=== PATIENT | male | born 1960 | race American Indian/Alaskan Native ===

== ENCOUNTER 2023-09-19 08:03 | Emergency (ER) | payer MEDICAID, OTHER ==
[2023-09-19 08:25] LABS: BASOPHILS PERCENT AUTO 0.2 % (0.0-1.0); EOSINOPHILS PERCENT AUTO 0.2 % (1.0-3.0); HEMATOCRIT 41.8 % (40.0-54.0); HEMOGLOBIN 13.4 g/dL (14.0-18.0); LYMPHOCYTES PERCENT AUTO 17.2 % (20.5-50.1); MEAN CORPUSCULAR HEMOGLOBIN 23.3 pg (27.0-34.0); MEAN CORPUSCULAR HGB CONC 32.1 g/dL (33.0-35.0); MEAN CORPUSCULAR VOLUME 72.8 fL (80-100); MONOCYTES PERCENT AUTO 6.4 % (2-8); PLATELET COUNT,PLT 275 10^3/uL (150-450); RED BLOOD CELL COUNT 5.74 10^6/uL (4.6-6.2); WHITE BLOOD CELL COUNT,WBC 13.5 10^3/uL (5.0-10.0)
[2023-09-19] MEDS: Sodium Chloride 0.9% 1,000 ML IV SCH (08:27)
[2023-09-19] MEDS: Sodium Chloride 0.9% 10 ML Syringe FLUSH PRN (08:27)
[2023-09-19] MEDS: Ondansetron 8 MG in Sodium Chloride 0.9% 50 ML IV ONE (08:30)
[2023-09-19 08:48] LABS: ALANINE AMINOTRANSFERASE,ALT 44 U/L (16-63); ALBUMIN 3.9 g/dL (3.4-5.0); ALKALINE PHOSPHATASE 119 U/L (46-116); ANION GAP 13.9 mEq/L (7-13); ASPARTATE AMNIOTRANSFERASE,AST 20 U/L (15-37); BILIRUBIN TOTAL 0.8 mg/dL (0.2-1.0); BLOOD UREA NITROGEN,BUN 27 mg/dL (7-18); BUN/CREATININE RATIO 31.4 (No establ ref range); CALCIUM 9.1 mg/dL (8.5-10.1); CARBON DIOXIDE,CO2 24 mmol/L (21-32); CHLORIDE,CL 104 mmol/L (98-107); CREATININE 0.86 mg/dL (0.70-1.30); EST CRCL DRUG DOSING (CG) 97.75 mL/min; GLUCOSE RANDOM 128 mg/dL (70-99); LIPASE 29 U/L (16-77); MAGNESIUM 1.9 mg/dL (1.8-2.4); POTASSIUM,K 3.9 mmol/L (3.5-5.1); PROTEIN TOTAL,TP 7.9 g/dL (6.4-8.2); SODIUM,NA 138 mmol/L (136-145)
[2023-09-19 08:51] LABS: PROTHROMBIN TIME 10.3 SEC (9.0-12.0)
[2023-09-19 08:57] LABS: ESTIMATED GFR 98 mL/min (>=60)
[2023-09-19 09:03] LABS: B-TYPE NATRIURETIC PEPTIDE,BNP < 5 pg/ml (0-100)
[2023-09-19 09:07] LABS: PTT,PARTIAL THROMBOPLSTIN TIME 25.2 SEC (22.0-34.0)
[2023-09-19] MEDS: Iopamidol 612 MG/ML 100 ML Bottle IVPUSH ONE (09:12)
[2023-09-19 09:26] LABS: APPEARANCE,URINE CLEAR (CLEAR); BILIRUBIN,URINE NEGATIVE (NEGATIVE); COLOR,URINE YELLOW (YELLOW); GLUCOSE,URINE NEGATIVE (NEGATIVE); KETONES,URINE NEGATIVE (NEGATIVE); LEUKOCYTE ESTERASE,URINE NEGATIVE (NEGATIVE); NITRITE,URINE NEGATIVE (NEGATIVE); OCCULT BLOOD,URINE NEGATIVE (NEGATIVE); PH,URINE 6.5 (5.0-9.0); PROTEIN,URINE NEGATIVE (NEGATIVE)
[2023-09-19] MEDS ORDERED: Naloxone 2 MG/2 ML Syringe IVPUSH PRN ×2 (09:33→11:07)
[2023-09-19 09:46] LABS: BENZODIAZEPINE,URINE NEGATIVE (NEGATIVE); MDMA (ECSTASY), URINE NEGATIVE (NEGATIVE); METHADONE,URINE NEGATIVE (NEGATIVE); METHAMPHETAMINES,URINE NEGATIVE (NEGATIVE); OPIATES,URINE NEGATIVE (NEGATIVE)
[2023-09-19 09:47] LABS: AMPHETAMINES,URINE NEGATIVE (NEGATIVE); BARBITURATES,URINE NEGATIVE (NEGATIVE); OXYCODONE,URINE NEGATIVE (NEGATIVE); PHENCYCLIDINE,URINE NEGATIVE (NEGATIVE); TCA,URINE NEGATIVE (NEGATIVE)
[2023-09-19] MEDS: Morphine 2 MG/ML SYRINGE IVPUSH ONE ×2 (09:48→11:20)
[2023-09-19] MEDS: Sodium Chloride 0.9% 1,000 ML IV ONE (11:20)
[2023-09-19] MEDS: Piperacillin/Tazobactam 3.375 GM in Sodium Chloride 0.9% 100 ML IV ONE (11:25)
[2023-09-19] MEDS: hydrALAZINE 20 MG/ML SDV IVPUSH ONE ×2 (11:27→11:52)
[2023-09-19] MEDS: Metoclopramide 10 MG/2 ML SDV IVPUSH ONE (11:37)
[2023-09-19 11:43] VITALS: BP 133/70; PULSE 117
== END 2023-09-19 11:59 ==
LOC: DL.ED 08:03
DX: K37 Unspecified appendicitis (principal); I10 Essential (primary) hypertension; K21.9 Gastro-esophageal reflux disease without esophagitis; Z88.6 Allergy status to analgesic agent; Z88.5 Allergy status to narcotic agent; Z88.8 Allergy status to other drugs, medicaments and biological substances; Z79.899 Other long term (current) drug therapy; Z87.891 Personal history of nicotine dependence
CPT/HCPCS: 36415; 71045; 74177; 80053; 80305; 81003; 83605; 83690; 83735; 83880; 84484; 85025; 85610; 85730; 87040; 93005; 96361; 96374; 96375; 96376; 99285; J0360; J2270; J2405; J2543; J2765; J3490; J7030; Q9967

== ENCOUNTER 2024-04-24 12:05 | Emergency (ER) | payer MEDICAID ==
[2024-04-24 12:50] LABS: BASOPHILS PERCENT AUTO 0.3 % (0.0-1.0); EOSINOPHILS PERCENT AUTO 1.9 % (1.0-3.0); HEMATOCRIT 45.1 % (40.0-54.0); HEMOGLOBIN 14.7 g/dL (14.0-18.0); LYMPHOCYTES PERCENT AUTO 39.9 % (20.5-50.1); MEAN CORPUSCULAR HGB CONC 32.6 g/dL (33.0-35.0); MEAN CORPUSCULAR VOLUME 79.7 fL (80-100); MONOCYTES PERCENT AUTO 8.7 % (2-8); NEUTROPHILS PERCENT AUTO 49.2 % (42.2-75.2); PLATELET COUNT,PLT 240 10^3/uL (150-450); RED BLOOD CELL COUNT 5.66 10^6/uL (4.6-6.2); WHITE BLOOD CELL COUNT,WBC 6.8 10^3/uL (5.0-10.0)
[2024-04-24 13:12] LABS: A/G RATIO 0.9; ALBUMIN 3.9 g/dL (3.4-5.0); ANION GAP 15.1 mEq/L (7-13); BILIRUBIN TOTAL 0.7 mg/dL (0.2-1.0); BUN/CREATININE RATIO 22.4 (No establ ref range); CALCIUM 8.9 mg/dL (8.5-10.1); CREATININE 0.85 mg/dL (0.70-1.30); EST CRCL DRUG DOSING (CG) 90.11 mL/min; POTASSIUM,K 4.1 mmol/L (3.5-5.1); PROTEIN TOTAL,TP 8.2 g/dL (6.4-8.2)
[2024-04-24 13:49] VITALS: BP 111/87; PULSE 58
== END 2024-04-24 15:23 | disposition home or self-care (01) ==
LOC: DL.ED 12:05
DX: R07.89 Other chest pain (principal); I10 Essential (primary) hypertension; K21.9 Gastro-esophageal reflux disease without esophagitis; Z88.6 Allergy status to analgesic agent; Z88.8 Allergy status to other drugs, medicaments and biological substances; Z79.899 Other long term (current) drug therapy
CPT/HCPCS: 36415; 71046; 80053; 82550; 83690; 83735; 84484; 85025; 85379; 93005; 99285

== ENCOUNTER 2024-06-08 05:09 | Emergency (ER) | payer MEDICAID ==
[2024-06-08 05:31] VITALS: BP 134/90; PULSE 72
[2024-06-08] MEDS ORDERED: Sodium Chloride 0.9% 10 ML Syringe FLUSH PRN (05:51)
[2024-06-08 06:07] LABS: BASOPHILS PERCENT AUTO 0.3 % (0.0-1.0); HEMATOCRIT 43.1 % (40.0-54.0); HEMOGLOBIN 13.8 g/dL (14.0-18.0); LYMPHOCYTES PERCENT AUTO 15.1 % (20.5-50.1); MEAN CORPUSCULAR VOLUME 81.3 fL (80-100); MONOCYTES PERCENT AUTO 9.8 % (2-8); NEUTROPHILS PERCENT AUTO 72.8 % (42.2-75.2); PLATELET COUNT,PLT 223 10^3/uL (150-450); WHITE BLOOD CELL COUNT,WBC 9.5 10^3/uL (5.0-10.0)
[2024-06-08 06:08] LABS: APPEARANCE,URINE CLEAR (CLEAR); BILIRUBIN,URINE NEGATIVE (NEGATIVE); COLOR,URINE YELLOW (YELLOW); GLUCOSE,URINE NEGATIVE (NEGATIVE); KETONES,URINE NEGATIVE (NEGATIVE); LEUKOCYTE ESTERASE,URINE NEGATIVE (NEGATIVE); NITRITE,URINE NEGATIVE (NEGATIVE); OCCULT BLOOD,URINE MODERATE (NEGATIVE); PROTEIN,URINE NEGATIVE (NEGATIVE)
[2024-06-08 06:22] LABS: WBC,URINE 0-5 /HPF (0-5/HPF)
[2024-06-08 06:23] LABS: BACTERIA,URINE RARE /HPF (0-FEW/HPF); EPITHELIAL CELLS,URINE RARE /HPF (NOT SEEN)
[2024-06-08 06:26] LABS: A/G RATIO 0.9; ALBUMIN 3.8 g/dL (3.4-5.0); ANION GAP 11.9 mEq/L (7-13); BILIRUBIN TOTAL 0.6 mg/dL (0.2-1.0); BUN/CREATININE RATIO 14.7 (No establ ref range); CALCIUM 9.2 mg/dL (8.5-10.1); CREATININE 1.16 mg/dL (0.70-1.30); EST CRCL DRUG DOSING (CG) 65.18 mL/min; POTASSIUM,K 3.9 mmol/L (3.5-5.1); PROTEIN TOTAL,TP 8.2 g/dL (6.4-8.2)
[2024-06-08 06:29] LABS: LACTIC ACID 0.8 mmol/L (0.4-2.0)
[2024-06-08 06:34] LABS: AMPHETAMINES,URINE POSITIVE (NEGATIVE); BARBITURATES,URINE NEGATIVE (NEGATIVE); BENZODIAZEPINE,URINE NEGATIVE (NEGATIVE); MDMA (ECSTASY), URINE NEGATIVE (NEGATIVE); METHADONE,URINE NEGATIVE (NEGATIVE); METHAMPHETAMINES,URINE POSITIVE (NEGATIVE); OPIATES,URINE NEGATIVE (NEGATIVE); OXYCODONE,URINE NEGATIVE (NEGATIVE); PHENCYCLIDINE,URINE NEGATIVE (NEGATIVE); TCA,URINE NEGATIVE (NEGATIVE)
== END 2024-06-08 06:56 | disposition home or self-care (01) ==
LOC: DL.ED 05:09
DX: T43.651A Poisoning by methamphetamines accidental (unintentional), initial encounter (principal); R10.9 Unspecified abdominal pain; I10 Essential (primary) hypertension; K21.9 Gastro-esophageal reflux disease without esophagitis; Z88.8 Allergy status to other drugs, medicaments and biological substances; Z88.5 Allergy status to narcotic agent; Z79.899 Other long term (current) drug therapy
CPT/HCPCS: 36415; 80053; 80305-QW; 81001; 83605; 83690; 83735; 85025; 99284